=== PATIENT | male | born 1950 | race Caucasian/White ===

== ENCOUNTER 2016-11-01 08:25 | Inpatient (IN) | payer OTHER ==
[2016-10-18 11:09] VITALS: BMI 32.0
--- NOTE | 2016-10-18 11:50 | PAT Medication Instructions ---
Service Date Oct 18, 2016. Current Home Medication List Cholecalciferol (Vitamin D), 1 CAP PO 3XWK Cholecalciferol (Vitamin D), 1 TAB PO QAM Sildenafil Citrate (Viagra), 25 MG PO PRN Medication Instructions For Your Scheduled Surgery - Hold the following medications 24 hours prior to surgery: Sildenafil Citrate (Viagra), 25 MG PO PRN - Hold the following medications the morning of surgery: Cholecalciferol (Vitamin D) If you have any questions please call us at [phone] or [phone] ( [place]) or [phone]
[2016-10-18 12:21] LABS: BASO % 0.3 %; BASO ABS # 0.02 K/uL (0-0.2); COMPLETE YES; EOS % 2.1 %; HEMATOCRIT 44.6 % (42-52); IG% 0.3 %; LYMPH % 29.3 %; LYMPH ABS # 1.99 K/uL (1.2-3.4); MEAN CORPUSCULAR HGB CONC 35.2 g/dl (32-36); MEAN PLATELET VOLUME 11.5 fL (7.4-10.4); MONO % 9.6 %; NEUT % 58.4 %; PLATELET COUNT 181 K/uL (130-400); WHITE BLOOD COUNT 6.79 K/uL (4.8-10.8)
[2016-10-18 12:29] LABS: INR 0.9 (0.9-1.1); PROTHROMBIN TIME (PATIENT) 10.1 SECONDS (9.0-12.0)
[2016-10-18 12:30] LABS: URINE APPEARANCE CLEAR (CLEAR); URINE BILIRUBIN NEG (NEG); URINE COLOR YELLOW; URINE NITRITE NEG (NEG); URINE PH 6.5 (4.5-7.5); URINE SPECIFIC GRAVITY 1.022 (1.000-1.030); UROBILINOGEN NEG (NEG); ZZUR CULT IF INDIC CLEAN CATCH NO
--- NOTE | 2016-10-18 12:31 | DIAGNOSTIC IMAGING REPORT ---
CHEST 2 VIEWS ROUTINE CLINICAL HISTORY: Preoperative evaluation. COMPARISON STUDY: Chest radiograph November 12, 2013. FINDINGS: Lung volumes are normal. There is no pneumothorax or pleural effusion. Pulmonary vascularity is normal. Mild cardiomegaly is unchanged. No consolidation is identified. IMPRESSION: 1. No acute cardiopulmonary findings. 2. Stable mild cardiomegaly. Electronically signed by: Orville Goodman M.D. 10/18/2016 12:29 PM Dictated Date/Time: 10/18/2016 12:28 PM
[2016-10-18 12:33] LABS: MANUAL MICROSCOPIC REQUIRED? NO; REVIEW REQ? NO
[2016-10-18 12:38] LABS: ESTIMATED AVERAGE GLUCOSE 151 mg/dl; HA1C FLAG Normal (Normal)
[2016-10-18 12:40] LABS: BUN/CREATININE RATIO 16.5 (10-20); CALCIUM 9.2 mg/dl (8.5-10.1); CREATININE 0.95 mg/dl (0.60-1.40); POTASSIUM 4.7 mmol/L (3.5-5.1)
--- NOTE | 2016-10-31 10:51 | HISTORY & PHYSICAL EXAMINATION ---
DATE OF ADMISSION: 11/01/2016 CHIEF COMPLAINT: Left knee pain. HISTORY OF PRESENT ILLNESS: Mr. Schmidt is a 66-year-old male with a 3- to 4-year history of pain in his left knee. The patient rates his pain a 3/10. He has pain with his daily activities. He has limited standing and walking tolerance. Pain is worse with weightbearing. The patient has failed conservative treatment and is scheduled for left knee replacement. PAST MEDICAL HISTORY: Diabetes. He denies heart disease or DVT. PAST SURGICAL HISTORY: Right total knee arthroplasty. SOCIAL HISTORY: The patient drinks 4 alcoholic drinks per day. He denies tobacco use. He lives in a 2-juventino home. 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 FAMILY HISTORY: Negative for DVT. MEDICATIONS: Vitamin D, Viagra. ALLERGIES: DOXYCYCLINE. REVIEW OF SYSTEMS: See HPI. Ten other systems reviewed, all negative. PHYSICAL EXAMINATION: VITAL SIGNS: Height 5 foot 9 inches, weight 220 pounds, BMI 32. GENERAL: This is a well-developed, well-nourished male who is alert and oriented x3. Mood and affect are appropriate. HEENT: Normocephalic, atraumatic. Mucous membranes are moist and intact. NECK: Supple without lymphadenopathy. HEART: Regular rate and rhythm without murmurs, rubs or gallops. LUNGS: Clear to auscultation without wheezes or rhonchi. ABDOMEN: Soft and nontender. Bowel sounds are equal and active. EXTREMITIES: No ecchymosis, redness or warmth. Thigh and calf are soft and nontender. He has a varus deformity. Range of motion is from 0-120 degrees with +2 laxity. He is neurovascularly intact with +5/5 strength. X-RAY EXAMINATION: AP and lateral views show joint space narrowing and osteophyte formation. IMPRESSION: Degenerative joint disease, left knee. PLAN: The patient will be admitted for a left total knee arthroplasty. We will plan on aspirin for DVT prophylaxis. He will do outpatient physical therapy. PCP is Dr. Flores in [place].
[~2016-11-01] VITALS: Ht 175.3 cm; Wt 99.5 kg
[2016-11-01] VITALS (9 sets, daily range): BP systolic 124–154; BP diastolic 79–90; PULSE 82–99; TEMP 36.3–36.7; O2SAT 95–98; Ht 175.3 cm; Wt 99.5 kg
[2016-11-01] MEDS: TRANEXAMIC ACID INJ 1,000 MG in SODIUM CHLORIDE 0.9% 100ML 100 ML IV SCH ×2 (06:00→06:30)
[~2016-11-01 08:25] MED LIST: ACETAMINOPHEN 500 MG TAB PO SCH; BUPIVACAINE 0.25% 30 ML VIAL ONE; BUPIVACAINE 0.5 % 5 MG/1 ML PF 10ML VIAL ONE; CEFAZOLIN 2000 MG/60 ML D5W 60 ML IV SCH; CHOL100010 PO; CHOL200010 PO; CeleBREX 200 MG CAP PO SCH; DEXAMETHASONE 4 MG TAB PO SCH; FAMOTIDINE 20 MG TAB PO SCH; GABAPENTIN 300 MG CAP PO SCH; LACTATED RINGER'S 1000ML 1,000 ML IV SCH; LACTATED RINGER'S 1000ML 500 ML IV ONE; METOCLOPRAMIDE HCL 10 MG TAB PO SCH; OXYCODONE HCL 10 MG TABCR (OXYCONTIN) PO SCH; POLYMYXIN B SULFATE 100,000 UNITS in NSS 100ML IR SCH; ROPIVACAINE 5MG/ML 30 ML 150 MG, BUPIVACAINE/EPINEPHR 0.5% MPF 30 ML, KETOROLAC TROMETH... INFIL SCH; SILD1TAB11 PO; VANCOMYCIN INJ 400 MG in NSS 100ML IR SCH
[2016-11-01] MEDS ORDERED: PROPOFOL IV EMULSION 10 MG/ML 20 ML VIAL IV ONE (09:37)
[2016-11-01] MEDS ORDERED: MIDAZOLAM HCL 1 MG/ML 2ML VIAL ONE ×2 (09:37→11:50)
[2016-11-01] MEDS ORDERED: FENTANYL CITRATE INJ 50 MCG/1 ML 2 ML VIAL ONE (09:37)
[2016-11-01] MEDS ORDERED: ONDANSETRON INJ 2 MG/ML 2 ML VIAL ONE (09:37)
[2016-11-01] MEDS ORDERED: LIDOCAINE HCL 2% 2 ML VIAL (20MG/ML) ONE (09:37)
--- NOTE | 2016-11-01 10:26 | History & Physical Bridge Note ---
H&P Re-Evaluation Bridge Note: I have examined the patient, reviewed the History & Physical and in the interval since the performance of the History & Physical I have noted the following changes of clinical significance: No changes noted
[2016-11-01] MEDS ORDERED: ORTHO JOINT ANESTHETIC ONE (11:05)
[2016-11-01] MEDS ORDERED: BUPIVACAINE/EPINEPHRINE 0.25% 1:200,000 30 ML VIAL ONE (11:05)
[2016-11-01] MEDS ORDERED: BACITRACIN 50000 UNIT VIAL ONE (11:06)
[2016-11-01] MEDS ORDERED: POVIDONE-IODINE OP SOLN 30 ML BTL ONE (11:06)
[2016-11-01] MEDS ORDERED: LACTATED RINGER'S 1000ML 1,000 ML IV PRN (11:08)
[2016-11-01] MEDS ORDERED: FENTANYL CITRATE INJ 50 MCG/1 ML 2 ML VIAL IV PRN (11:15)
[2016-11-01] MEDS ORDERED: ONDANSETRON INJ 2 MG/ML 2 ML VIAL IV PRN ×2 (11:15→12:45)
[2016-11-01] MEDS ORDERED: LABETALOL HCL IV 5 MG/ML 20ML ONE (12:03)
--- NOTE | 2016-11-01 12:44 | [facility] Post Operative Brief Note ---
Immediate Operative Summary Operative Date Nov 01, 2016. Pre-Operative Diagnosis Left Knee Degenerative Joint Disease Post-Operative Diagnosis Left Knee Degenerative Joint Disease Procedure(s) Performed Left Total Knee Arthroplasty Surgeon Dr. Cheo Mcfadden Career Orientation Teacher Surgeon(s) Holger Buchanan PA-C Estimated Blood Loss 100 Findings djd Specimens A. Left Knee Bone and Tissue Complication(s) None Disposition Recovery Room / PACU
[2016-11-01] MEDS ORDERED: ZOLPIDEM TARTRATE 5 MG TAB PO PRN (12:45)
[2016-11-01] MEDS ORDERED: OXYCODONE HCL IR 5 MG TAB (IMMEDIATE RELEASE) PO PRN (12:45)
[2016-11-01] MEDS ORDERED: METOCLOPRAMIDE HCL INJ 5 MG/ML 2 ML VIAL IV PRN (12:45)
[2016-11-01] MEDS ORDERED: SOD PHOSPHATE/SOD BIPHOSPHATE ENEMA 132 ML BTL PR PRN (12:45)
[2016-11-01] MEDS ORDERED: ALUMINUM/MAGNESIUM/SIMETH (MAALOX MAX) 30 ML UDC PO PRN (12:45)
[2016-11-01] MEDS ORDERED: KETOROLAC TROMETHAMINE 15 MG/ML VIAL IV. PRN (12:45)
[2016-11-01] MEDS ORDERED: DiphenhydrAMINE HCL 50 MG/ML VIAL IV PRN (12:45)
[2016-11-01] MEDS ORDERED: TRAMADOL HCL 50 MG TAB PO PRN (12:45)
[2016-11-01] MEDS ORDERED: MAGNESIUM HYDROXIDE SUSP 30 ML UDC PO PRN (12:45)
[2016-11-01] MEDS ORDERED: TAMSULOSIN HCL 0.4 MG CAP PO PRN (12:45)
[2016-11-01] MEDS ORDERED: BISACODYL 10 MG SUPP PR PRN (12:45)
[2016-11-01] MEDS ORDERED: MoRPHine SULFATE 2 MG/ML CARP IV PRN (12:45)
--- NOTE | 2016-11-01 13:57 | DIAGNOSTIC IMAGING REPORT ---
LEFT KNEE 2 VIEWS History: Left total knee arthroplasty. Degenerative arthritis. Postop. FINDINGS: The patient is status post a left total knee arthroplasty. The hardware is intact. No fracture or dislocation. Surgical drains are in place. IMPRESSION: Left total knee arthroplasty. No evidence for hardware complication. Electronically signed by: Vega Huber M.D. 11/01/2016 1:56 PM Dictated Date/Time: 11/01/2016 1:55 PM
--- NOTE | 2016-11-01 14:08 | Anesthesiology Progress Note ---
Anesthesia Post Op Note Date & Time Nov 01, 2016 at 14:08 Vital Signs Pain Intensity: 0 Vital Signs Past 12 Hours Date Time Temp Pulse Resp B/P Pulse Ox O2 Delivery O2 Flow Rate FiO2 11/01/16 13:24 36.3 84 16 110/73 96 Nasal Cannula 3 11/01/16 08:55 36.4 88 20 154/84 95 Room Air Notes Mental Status: alert / awake / arousable, participated in evaluation Pt Amnestic to Procedure: Yes Nausea / Vomiting: adequately controlled Pain: adequately controlled Airway Patency, RR, SpO2: stable & adequate BP & HR: stable & adequate Hydration State: stable & adequate Neuraxial Anesthesia: was administered, sensory block is resolving Anesthetic Complications: no major complications apparent Pt doing well.
[2016-11-01] MEDS: D5W AND 1/2NSS + 20MEQ KCL 1,000 ML IV SCH (15:59)
--- NOTE | 2016-11-01 17:24 | OPERATIVE REPORT ---
DATE OF OPERATION: 11/01/2016 PREOPERATIVE DIAGNOSIS: Degenerative arthritis, right knee. POSTOPERATIVE DIAGNOSIS: Same. PROCEDURE: Right total knee with patient matched implant. SURGEON: Dr. Mcfadden. LSW: CLEMENTE Jalloh. ANESTHESIA: Spinal. BLOOD LOSS: 100 mL. REPLACEMENT FLUIDS: 1700 mL crystalloid. DRAINS: Hemovac x2. CULTURES: None. COMPLICATIONS: None. COMPONENTS USED: Xiao \T\ Nephew Journey Knee System: Femur size 5, tibia size 6 x 15, and patella size 35. NOTE: Holger Buchanan was present and assisted throughout due to the complicated nature of this case. He helped with preparation and set up, first assisted throughout and personally closed the capsule, subcutaneous and skin layers and applied the postoperative dressing. DESCRIPTION: Following satisfactory spinal, a tourniquet was placed, but not inflated. The lower extremity was prepared with ChloraPrep and draped sterilely. Following a surgical time-out, a midline incision was made with a trivector approach. The knee showed severe grade 4 changes throughout. The anterior cruciate was deteriorated. The posterior cruciate ligament was excised. The patient matched femoral block was applied. Femoral distal rotation and resection were set and completed. The 4-in-1 block was used to finish preparation of the femur. The patient matched tibial block was applied. Tibial resection was completed. The patella was freehand cut. Soft tissue balancing was completed and a trial reduction showed good tensioning stability on the collateral ligaments, stable range of motion, and the patella tracked well. The trial components were removed. The capsule was prepared with the orthopedic cocktail and after irrigation, the components were cemented using Simplex G cement. While the cement was hardening, a Betadine soak was performed. When the cement had hardened, the Betadine was irrigated. Two drains were placed. The arthrotomy was closed with a running suture of 0 V-Loc. Subcutaneous tissues with 2-0 Vicryl and the skin with a running subcuticular stitch of 3-0 V-Loc. Dermabond and a dry dressing were applied. The patient was returned to his bed in stable condition. I attest to the content of the Intraoperative Record and any orders documented therein. Any exceptio ns are noted below.
[2016-11-01] MEDS ORDERED: TRANEXAMIC ACID INJ 1,000 MG in SODIUM CHLORIDE 0.9% 100ML 100 ML IV SCH (18:00)
[2016-11-01] MEDS: CEFAZOLIN IV 2,000 MG in DEXTROSE 5% 50ML 50 ML IV SCH (19:34)
[2016-11-01] MEDS: ACETAMINOPHEN 500 MG TAB PO SCH (19:34)
[2016-11-01] MEDS: ASPIRIN 81 MG ECTAB PO SCH (19:35)
[2016-11-01] MEDS: OXYCODONE HCL 10 MG TABCR (OXYCONTIN) PO SCH (19:50)
[2016-11-01] MEDS ORDERED: SENNA 8.6 MG TAB PO SCH (21:00)
[2016-11-01] MEDS ORDERED: CeleBREX 200 MG CAP PO SCH (21:00)
[2016-11-02] MEDS: D5W AND 1/2NSS + 20MEQ KCL 1,000 ML IV SCH ×2 (01:32→10:43)
[2016-11-02] MEDS: CEFAZOLIN IV 2,000 MG in DEXTROSE 5% 50ML 50 ML IV SCH (03:17)
[2016-11-02] MEDS: ACETAMINOPHEN 500 MG TAB PO SCH ×2 (03:17→11:29)
[2016-11-02 03:26] VITALS: BP 130/80; PULSE 101; TEMP 36.4; O2SAT 96
[2016-11-02 05:55] LABS: HEMATOCRIT 35.6 % (42-52); MEAN CORPUSCULAR HEMOGLOBIN 32.6 pg (25-34); MEAN CORPUSCULAR HGB CONC 35.4 g/dl (32-36); MEAN PLATELET VOLUME 11.3 fL (7.4-10.4); PLATELET COUNT 167 K/uL (130-400); RED BLOOD COUNT 3.87 M/uL (4.7-6.1); WHITE BLOOD COUNT 16.25 K/uL (4.8-10.8)
[2016-11-02 06:20] LABS: BUN/CREATININE RATIO 17.5 (10-20); CALCIUM 8.3 mg/dl (8.5-10.1); CREATININE 1.1 mg/dl (0.60-1.40); POTASSIUM 4.5 mmol/L (3.5-5.1)
[2016-11-02] MEDS: OXYCODONE HCL 10 MG TABCR (OXYCONTIN) PO SCH (07:54)
[2016-11-02] MEDS: ASPIRIN 81 MG ECTAB PO SCH (07:55)
[2016-11-02 08:00] VITALS: O2SAT 96
[2016-11-02 08:28] VITALS: BP 142/88; PULSE 89; TEMP 36.6; O2SAT 97
--- NOTE | 2016-11-02 08:31 | Orthopedic Progress Note ---
Orthopedic Progress Note Date of Service Nov 02, 2016. Subjective Post OP Day: 1 Reports: feeling well, Denies: SOB, calf pain, chest pain, light headedness, nausea / vomiting Objective calves soft nontender, N/V intact, dressing C/D/I, A&O x3, toes mobile, hemovac drainage (475/225CC PER SHIFT) Date Time Temp Pulse Resp B/P Pulse Ox O2 Delivery O2 Flow Rate FiO2 11/02/16 08:00 96 Room Air 11/02/16 03:26 36.4 101 16 130/80 96 Room Air 11/01/16 23:48 Room Air 11/01/16 22:59 36.4 97 15 151/89 96 Room Air 11/01/16 19:32 146/90 11/01/16 19:23 36.4 98 18 96 Room Air 11/01/16 17:33 36.4 99 18 151/88 95 Room Air 11/01/16 16:30 36.4 96 18 129/81 96 Nasal Cannula 2.0 11/01/16 16:00 Room Air 11/01/16 15:30 36.3 84 18 126/86 98 Nasal Cannula 2.0 11/01/16 15:00 36.3 82 18 129/79 96 Nasal Cannula 2.0 11/01/16 14:30 97 Nasal Cannula 2.0 11/01/16 14:30 36.7 91 21 124/83 97 Nasal Cannula 2.0 11/01/16 14:30 97 Nasal Cannula 2.0 11/01/16 14:19 84 9 94 11/01/16 14:19 84 9 11/01/16 14:15 111/84 11/01/16 14:14 86 15 11/01/16 14:14 36.4 88 20 111/73 97 Nasal Cannula 2 11/01/16 14:14 86 15 98 11/01/16 14:10 111/73 11/01/16 14:09 78 10 11/01/16 14:09 83 10 94 11/01/16 14:06 100/84 11/01/16 14:04 88 17 11/01/16 14:04 89 17 97 11/01/16 14:00 122/77 11/01/16 13:59 80 11 11/01/16 13:59 82 11 90 11/01/16 13:55 115/69 3/7/17 13:54 87 12 93 11/01/16 13:54 87 12 11/01/16 13:50 119/67 11/01/16 13:49 83 11 11/01/16 13:49 80 11 96 11/01/16 13:45 112/66 11/01/16 13:44 75 8 97 11/01/16 13:44 74 8 11/01/16 13:40 113/74 11/01/16 13:39 86 16 11/01/16 13:39 86 16 97 11/01/16 13:35 105/66 11/01/16 13:34 77 8 11/01/16 13:34 80 8 97 11/01/16 13:30 103/62 11/01/16 13:29 82 7 96 11/01/16 13:29 82 7 11/01/16 13:25 96/74 11/01/16 13:24 85 16 11/01/16 13:24 36.3 84 16 110/73 96 Nasal Cannula 3 11/01/16 13:24 85 16 96 11/01/16 08:55 36.4 88 20 154/84 95 Room Air Laboratory Results 24 Hours: Test 11/02/16 05:40 Hematocrit 35.6 % Hemoglobin 12.6 g/dL Assessment & Plan Assessment: POD#1 SP LEFT TKA Inhouse Planning Pain Management: Oxycontin, PO Tylenol, Oxy IR DVT Prophylaxis: TEDs, SCDs, ASA Discharge Planning Discharge Planning: home with home health (PATIENT WILL LIKELY NEED TO KEEP HIS DRAIN. WILL NEED TOS EE IF ADVANTAGE WILL COVER [facility]. )
--- NOTE | 2016-11-02 08:32 | Discharge Instructions ---
Discharge Instructions Date of Service Nov 02, 2016. Admission Reason for Admission: Left Degenrative Arthritis- Leg/Knee Discharge Discharge Diagnosis / Problem: SP LEFT TKA Discharge Goals Goal(s): Decrease discomfort, Improve function, Increase independence Activity Recommendations Activity Limitations: per Instructions/Follow-up section . Instructions / Follow-Up Instructions / Follow-Up ACTIVITY RECOMMENDATIONS: SELF CARE INSTRUCTIONS AFTER TOTAL KNEE REPLACEMENT A. You may need to continue a physical therapy program after discharge from the hospital. There are several options available to you. Your doctor will assist you in selecting the best one for you. 1. An out-patient facility 2 to 3 times a week for therapy or home therapy. 2. Continue working on all exercises taught to you in the hospital. Your goals should be to increase bending of your knee to 90 degrees and beyond and to fully straighten your knee. B. You may progress at your own pace from walking with a walker or crutches to a cane; then to no assistive devices. C. Make walking a part of your daily routine. Be up as much as comfortable with rest periods throughout the day. Rest with leg elevation is very important. Use the ice wrap frequently for the first 3-4 weeks. D. There are no restrictions on activities. You may ride in a car, shop, participate in verification rep and all social activities. E. Wear the long elastic stockings (ARYA hose) 20 hours a day for 2 weeks after surgery. They can be removed several times a day for laundering and for a bath. F. You may shower, no tub baths until cleared by your doctor. SPECIAL CARE INSTRUCTIONS: VERY IMPORTANT TO READ AND REVIEW A. There are a few signs you need to watch for after you are home. Call [facility] if you notice any of the followin. Increased severe knee pain. Some pain is expected especially when you exercise. 2. Increased swelling in your leg or knee; pain or swelling of the calf muscle in either lower leg. 3. Any fluid drainage from the incision. 4. Shortness of breath or chest pain. B. Please call [facility] at if you have any concerns or questions about your operation or recovery. The doctor or his nurse will return your call promptly. C. You must take antibiotics before dental work, bladder, bowel or other surgery. Your doctor will provide you with a permanent care to carry describing this precaution. IMPORTANT: * REMEMBER TO TAKE ASPIRIN, 81 MG, TWICE DAILY FOR 4 WEEKS UNLESS OTHERWISE DIRECTED. THIS IS YOUR BLOOD THINNER. * HIGH RISK PATIENTS MAY BE PRESCRIBED A STRONGER BLOOD THINNER. THIS WILL BE PROVIDED AT DISCHARGE. * CALL IF INCREASED PAIN, REDNESS, DRAINAGE OR FEVER GREATER THAT 101. * WEAR ARYA HOSE 20 HOURS PER DAY FOR 2 WEEKS. DERMABOND Prineo- This is a mesh tape dressing that is covered with glue. It should remain in place until the incision is properly healed, usually 10-14 days. This dressing is designed to naturally slough off. You may trim the excess mesh tape as it peels off. Incision may be briefly wet in a shower. Dry immediately by blotting with a clean, dry towel. Do not bath or swim until instructed by your doctor. Do not scratch, rub, or pick at the dressing. Do not apply any topical ointments or lotions until dressing is completely removed and/or instructed by your doctor. There may be a small piece of suture material at one end of your incision. Do not pull or trim this. If it is bothersome or catching on clothing, you may cover it with a band-aid. FOLLOW UP VISIT: If appointment is not already scheduled: Please call [facility] to make a follow-up appointment for 2 weeks after your surgery at . Current Hospital Diet Patient's current hospital diet: Regular Diet Discharge Diet Recommended Diet: Regular Diet Procedures Procedures Performed: Left Total Knee Arthroplasty Pending Studies Studies pending at discharge: no Laboratory Results Hemoglobin A1c Test 10/18/16 11:56 Range/Units Estimated Average Glucose 151 mg/dl Hemoglobin A1c 6.9 H 4.5-5.6 % Medical Emergencies . Who to Call and When: Medical Emergencies: If at any time you feel your situation is an emergency, please call 911 immediately. . Non-Emergent Contact Non-Emergency issues call your: Primary Care Provider . "Provider Documentation" section prepared by Swapna Sampson. VTE Core Measure Inpt VTE Proph given/why not?: Other Anticoagulation, T.E.D. Stockings, SCD's [place] Drug Monitoring Program Search Results: patient reviewed within database, no issues identified
--- NOTE | 2016-11-02 08:34 | Anesthesiology Progress Note ---
Anesthesia Post Op Note Date & Time Nov 02, 2016 at 08:34 Vital Signs Pain Intensity: 0.0 Vital Signs Past 12 Hours Date Time Temp Pulse Resp B/P Pulse Ox O2 Delivery O2 Flow Rate FiO2 11/02/16 08:28 36.6 89 20 142/88 97 Room Air 11/02/16 08:00 96 Room Air 11/02/16 03:26 36.4 101 16 130/80 96 Room Air 11/01/16 23:48 Room Air 11/01/16 22:59 36.4 97 15 151/89 96 Room Air Notes Mental Status: alert / awake / arousable, participated in evaluation Pt Amnestic to Procedure: Yes Nausea / Vomiting: adequately controlled Pain: adequately controlled Airway Patency, RR, SpO2: stable & adequate BP & HR: stable & adequate Hydration State: stable & adequate Neuraxial Anesthesia: sensory block resolved Anesthetic Complications: no major complications apparent
[2016-11-02] MEDS ORDERED: RXC5 PO (08:35)
[2016-11-02] MEDS ORDERED: SNK PO (08:35)
[2016-11-02] MEDS ORDERED: CLB200 PO (08:35)
[2016-11-02] MEDS ORDERED: ASPEC81 PO (08:35)
[2016-11-02] MEDS ORDERED: ACET-1138 PO (08:35)
[2016-11-02] MEDS ORDERED: ONDA8TAB6 PO (08:35)
[2016-11-02] MEDS ORDERED: MORP-157 PO (08:35)
[2016-11-02] MEDS ORDERED: PANTOprazole SOD 40 MG TAB PO SCH (09:00)
[2016-11-02] MEDS ORDERED: MULTIVITAMIN TAB PO SCH (09:00)
[2016-11-02] MEDS ORDERED: CHOLECALCIFEROL 1000 INTER.UNIT TAB PO SCH (09:00)
[2016-11-02 09:53] VITALS: O2SAT 97
[2016-11-02 13:20] VITALS: BP 140/80; PULSE 86; TEMP 36.6; O2SAT 96
[2016-11-02 14:23] VITALS: BP 140/80; PULSE 86; TEMP 36.6; O2SAT 96
[2016-11-02] MEDS ORDERED: CeleBREX 200 MG CAP PO SCH (21:00)
--- NOTE | 2016-11-03 15:33 | DISCHARGE SUMMARY ---
DISCHARGE DIAGNOSIS: Degenerative joint disease, left knee. SECONDARY DIAGNOSIS: Diabetes mellitus. CONSULTS: None. COMPLICATIONS: None. PROCEDURE: Left total knee arthroplasty performed by Dr. Jarett Mcfadden on 11/01/2016. BRIEF HISTORY: As dictated in the history and physical. HOSPITAL SUMMARY: The patient was admitted on the above date and had the above-noted surgery performed which he tolerated well. On the first postoperative day, patient was feeling well and had no complaints. Calves were soft, nontender, neurovascularly intact. Dressings clean, dry and intact. Toes were mobile. Vital signs were stable. He was afebrile and was noted that he had mild tachycardia at 101 in the early a.m. of the 8th. He was otherwise remaining stable and hemoglobin was 12.6. He was started on physical therapy protocol and continued on DVT prophylaxis and pain management. Plans were to watch his Hemovac drainage and if it was slowing down, that he would be able to have the drain pulled and he could be discharged later that day. The patient was rechecked on his Hemovac drainage, which proved to be 70 mL and after discussion with Swapna Sampson PA-C and myself, it was felt that he could be discharged to home. He was progressing well with his physical therapy, remaining stable and he was discharged to home on 11/02/2016. For further review, please see chart. LAB AND X-RAY DATA: As per chart. DISCHARGE INSTRUCTIONS: The patient was discharged to home in satisfactory condition on 11/02/2016. DIET: Regular. ACTIVITY: Follow TKA instruction sheets and special care instructions as noted. Follow up with Dr. Jarett Mcfadden in 2 weeks. The patient to call for appointment if one has not been made for you. DISCHARGE MEDICATIONS: Acetaminophen 1000 mg p.o. q. 8 hours, aspirin 81 mg p.o. b.i.d., Celebrex 200 mg p.o. b.i.d., morphine sulfate extended release 15 mg p.o. q. 12 hours, Zofran 8 mg p.o. q. 8 hours p.r.n. nausea, oxycodone 5-10 mg p.o. q. 4 hours p.r.n., senna 17.2 mg p.o. at bedtime. Resume taking vitamin D 2000 units 1 cap p.o. 3 times a week and 1000 unit tablet 1 tab p.o. q.a.m., Viagra 25 mg p.o. p.r.n.
--- NOTE | 2016-11-04 06:07 | EDITING REQUIRED CODING QUERY ---
CODING QUERY To promote full compliance with coding requirements relating to patient care, provider participation is requested in all cases of hematology specialist uncertainty. Please assist us with the question(s) below: Coding Question(s): Dr. Mcfadden, The H&P and other documents state that the patient had OA of the left knee and that the TKA was done on the left knee. The operative report states OA and TKA of the right knee. Please clarify for the record which knee was replaced: (X ) left knee ( ) right knee Physician's Response(s): Thank you for your time, CYNDY Perez, [employer]
== END 2016-11-02 15:25 | disposition home or self-care (01) | DRG 470 ==
LOC: ENRESERVDT → ENRESERVTM → C.ACU 08:25 → C.3E 10:00
PROVIDERS: ADMIT Orthopaedic Surgery; ATTEND Orthopaedic Surgery
PROC: 0SRD0J9 Replacement of Left Knee Joint with Synthetic Substitute, Cemented, Open Approach (ICD-10-PCS; principal; 2016-11-01 10:30)
DX: M17.12 Unilateral primary osteoarthritis, left knee (principal); M21.162 Varus deformity, not elsewhere classified, left knee; R00.0 Tachycardia, unspecified; E11.9 Type 2 diabetes mellitus without complications; N40.0 Benign prostatic hyperplasia without lower urinary tract symptoms; E66.9 Obesity, unspecified; Z68.32 Body mass index [BMI] 32.0-32.9, adult; Z96.651 Presence of right artificial knee joint; Z87.891 Personal history of nicotine dependence